=== PATIENT | male | born 1950 | race Caucasian/White ===

== ENCOUNTER 2017-07-23 14:54 | Observation (INO) | payer MEDICARE ==
[~2017-07-23] VITALS: Ht 165.1 cm; Wt 73.0 kg
--- NOTE | 2017-07-23 15:07 | PD ---
HPI Chief Complaint: Stroke Alert Time Seen by Provider: 15:02 Travel History International Travel<30 days: No Contact w/Intl Traveler<30days: No Traveled to known affect area: No History of Present Illness HPI This 66-year-old male says that an hour and a half ago he had numbness of his left arm. The arm was weak and he was unable to control it. The leg was not affected. His says that his speech seemed abnormal. He was able to drive here. He has a history of hypertension. He takes lisinopril and aspirin daily. He has been having some headaches recently. His says that he occasionally gets confused recently. [facility] Social History Tobacco Use: No Allergies-Medications (Allergen,Severity, Reaction): Coded Allergies: amoxicillin (Verified Allergy, Unknown, 07/23/17) clavulanic acid (Verified Allergy, Unknown, 07/23/17) Reported Meds & Prescriptions Reported Meds & Active Scripts Active Reported Aspirin 81 Mg Chew 81 Mg CHEW DAILY Lisinopril 10 Mg Tab 10 Mg PO DAILY Review of Systems Except as stated in HPI: all other systems reviewed are Neg General / Constitutional: No: Fever, Chills Eyes: No: Diploplia, Blurred Vision HENT: Positive: Headaches Cardiovascular: No: Chest Pain or Discomfort Respiratory: No: Cough, Shortness of Breath Gastrointestinal: No: Nausea Genitourinary: No: Urgency Musculoskeletal: No: Myalgias Skin: No Rash, No Itching Neurologic: Positive: Weakness Psychiatric: No: Anxiety Hematologic/Lymphatic: No: Easy Bruising Physical Exam Narrative GENERAL: Well-developed male SKIN: Focused skin assessment warm/dry. HEAD: Atraumatic. Normocephalic. EYES: Pupils equal and round. No scleral icterus. No injection or drainage. ENT: No nasal bleeding or discharge. Mucous membranes pink and moist. NECK: Trachea midline. No JVD. CARDIOVASCULAR: Regular rate and rhythm. No murmur appreciated. RESPIRATORY: No accessory muscle use. Clear to auscultation. Breath sounds equal bilaterally. GASTROINTESTINAL: Abdomen soft, non-tender, nondistended. Hepatic and splenic margins not palpable. MUSCULOSKELETAL: No obvious deformities. No clubbing. No cyanosis. No edema. NEUROLOGICAL: Awake and alert. No obvious cranial nerve deficits. There is drift of the left arm. The left research development manager is weaker than the right. Sensory testing appears intact. Leg strength is symmetric. I do not see any facial asymmetry. He occasionally hesitates with his speech but there is no slurring PSYCHIATRIC: Appropriate mood and affect; insight and judgment normal. Data Data Last Documented VS Vital Signs Date Time Temp Pulse Resp B/P (MAP) Pulse Ox O2 Delivery O2 Flow Rate FiO2 07/23/17 15:21 98 07/23/17 15:16 98.4 69 20 171/91 (117) Orders Orders Cath For Specimen (07/23/17 15:02) Neuro Checks Q2HX12,Q4H (07/23/17 15:02) Nursing Bedside Swallow Assess .ONCE (07/23/17 15:02) Activity Bed Rest (07/23/17 15:02) Diet Npo (07/23/17 Dinner) Prothrombin Time / Inr (Pt) (07/23/17 15:02) Act Partial Throm Time (Ptt) (07/23/17 15:02) Complete Blood Count With Diff (07/23/17 15:02) Basic Metabolic Panel (Bmp) (07/23/17 15:02) Fibrinogen (07/23/17 15:02) Creatine Kinase (Cpk) (07/23/17 15:02) Troponin I (07/23/17 15:02) Ua Includes Microscopic (07/23/17 15:02) Drug Screen, Random Urine (07/23/17 15:02) Type And Screen (07/23/17 15:02) Ct Brain W/O Iv Contrast(Rout) (07/23/17 ) Cta Brain W Iv Contrast W 3d (07/23/17 15:02) Cta Neck W Iv Contrast W 3d (07/23/17 15:02) Electrocardiogram (07/23/17 ) Consult Neurology (07/23/17 15:02) Blood Glucose (07/23/17 15:02) Ecg Monitoring (07/23/17 15:02) Iv Access Insert/Monitor (07/23/17 15:02) NPO (07/23/17 15:02) Oximetry (07/23/17 15:02) Resp Oxygen Nc Stroke (07/23/17 ) (Hub Use Only)Inp Phy Cons/Ref (07/23/17 ) Clopidogrel (Plavix) (07/23/17 15:45) Admit Order (Ed Use Only) (07/23/17 15:44) Lipid Profile (07/23/17 15:46) Mri Brain W/O Contrast (07/23/17 ) Echo 2d Comp With Doppler (07/23/17 ) Clopidogrel (Plavix) (07/23/17 16:00) Labs Laboratory Tests Test 07/23/17 15:10 White Blood Count 4.2 TH/MM3 Red Blood Count 4.51 MIL/MM3 Hemoglobin 13.6 GM/DL Hematocrit 40.3 % Mean Corpuscular Volume 89.4 FL Mean Corpuscular Hemoglobin 30.2 PG Mean Corpuscular Hemoglobin Concent 33.8 % Red Cell Distribution Width 11.9 % Platelet Count 206 TH/MM3 Mean Platelet Volume 6.4 FL Neutrophils (%) (Auto) 57.1 % Lymphocytes (%) (Auto) 26.8 % Monocytes (%) (Auto) 11.0 % Eosinophils (%) (Auto) 4.1 % Basophils (%) (Auto) 1.0 % Neutrophils # (Auto) 2.4 TH/MM3 Lymphocytes # (Auto) 1.1 TH/MM3 Monocytes # (Auto) 0.5 TH/MM3 Eosinophils # (Auto) 0.2 TH/MM3 Basophils # (Auto) 0.0 TH/MM3 CBC Comment DIFF FINAL Differential Comment Prothrombin Time 10.0 SEC Prothromb Time International Ratio 1.0 RATIO Activated Partial Thromboplast Time 24.7 SEC Blood Urea Nitrogen 14 MG/DL Creatinine 1.10 MG/DL Random Glucose 94 MG/DL Calcium Level 8.8 MG/DL Sodium Level 138 MEQ/L Potassium Level 3.8 MEQ/L Chloride Level 105 MEQ/L Carbon Dioxide Level 27.9 MEQ/L Anion Gap 5 MEQ/L Estimat Glomerular Filtration Rate 67 ML/MIN Total Creatine Kinase 166 U/L Troponin I LESS THAN 0.02 NG/ML MDM Medical Decision Making Medical Screen Exam Complete: Yes Emergency Medical Condition: Yes Medical Record Reviewed: Yes Differential Diagnosis Differential includes ischemic stroke, neuropathy, cerebral hemorrhage Narrative Course Patient arrived within an hour and a half of his symptoms. A stroke alert was called. Patient was taken to CT and the noncontrast CT is negative. On returning from CT patient says he feels like his arm may be a little bit improved. On repeat examination the drift does appear improved. He seems to have weakness greatest on extension of the wrist. Dr. Sanchez has come to see the patient and at this point we are withholding alteplase as the deficit does not appear severe at this time. Patient developed this deficit in spite of taking aspirin this morning. He has been given Plavix Diagnosis Primary Impression: Acute CVA (cerebrovascular accident) Admitting Information Admitting Physician Requests: Admit Rico Valderrama MD Jul 23, 2017 15:07
[2017-07-23 15:16] VITALS: BP 171/91; PULSE 69; RESP 20; TEMP 98.4; O2SAT 98
[2017-07-23 15:21] VITALS: O2SAT 98
[2017-07-23] MEDS ORDERED: ASPI-516 CHEW (15:21)
[2017-07-23] MEDS ORDERED: LISI10TA3 PO (15:21)
--- NOTE | 2017-07-23 15:21 | RADRPT ---
EXAM DATE/TIME: 07/23/2017 15:07 [facility] COMPARISON: No previous studies available for comparison. INDICATIONS : Stroke alert. Left upper extremity numbness for one hour. RADIATION DOSE: 59.77 CTDIvol (mGy) This report was called by Jeevan Palacios MD to Dr. Vasquez at 1518 MEDICAL HISTORY : None SURGICAL HISTORY : None. ENCOUNTER: Initial ACUITY: 1 day PAIN SCALE: 0/10 LOCATION: cranial TECHNIQUE: Multiple contiguous axial images were obtained of the head. Using automated exposure control and adj ustment of the mA and/or kV according to patient size, radiation dose was kept as low as reasonably a chievable to obtain optimal diagnostic quality images. DICOM format image data is available electro nically for review and comparison. FINDINGS: CEREBRUM: The ventricles are normal for age. No evidence of midline shift, mass lesion, hemorrhage or acute in farction. No extra-axial fluid collections are seen. POSTERIOR FOSSA: The cerebellum and brainstem are intact. The 4th ventricle is midline. The cerebellopontine angle i s unremarkable. EXTRACRANIAL: The visualized portion of the orbits is intact. SKULL: The calvaria is intact. No evidence of skull fracture. CONCLUSION: 1. No evidence of acute intracranial pathology. No masses are identified. 2. Jeevan Palacios MD on July 23, 2017 at 15:16 Board Certified Radiologist. This report was verified electronically.
[2017-07-23 15:26] LABS: AUTOMATED NEUTROPHIL # 2.4 TH/MM3 (1.8-7.7); EOSINOPHIL # 0.2 TH/MM3 (0-0.4); EOSINOPHIL % 4.1 % (0.0-4.0); HEMATOCRIT 40.3 % (39.0-51.0); HEMOGLOBIN 13.6 GM/DL (13.0-17.0); LYMPH % 26.8 % (9.0-44.0); LYMPHOCYTE # 1.1 TH/MM3 (1.0-4.8); MEAN CELL VOLUME 89.4 FL (80.0-100.0); MEAN CORPUSCULAR HEMOGLOBIN 30.2 PG (27.0-34.0); MEAN CORPUSCULAR HGB CONC 33.8 % (32.0-36.0); MEAN PLATELET VOLUME 6.4 FL (7.0-11.0); MONOCYTE # 0.5 TH/MM3 (0-0.9); NEUT % 57.1 % (16.0-70.0); PLATELET COUNT 206 TH/MM3 (150-450); RED BLOOD COUNT 4.51 MIL/MM3 (4.50-5.90); RED CELL DISTRIBUTION WIDTH 11.9 % (11.6-17.2); WHITE BLOOD COUNT 4.2 TH/MM3 (4.0-11.0)
[2017-07-23 15:33] LABS: CHLORIDE 105 MEQ/L (98-107); SODIUM (NA) 138 MEQ/L (136-145)
[2017-07-23 15:36] LABS: BICARBONATE 27.9 MEQ/L (21.0-32.0); CALCIUM 8.8 MG/DL (8.5-10.1); GLUCOSE,RANDOM 94 MG/DL (74-106)
[2017-07-23 15:37] LABS: BLOOD UREA NITROGEN 14 MG/DL (7-18)
[2017-07-23 15:40] LABS: GLOMERULAR FILTRATION RATE 67 ML/MIN (>89)
--- NOTE | 2017-07-23 15:41 | RADRPT ---
EXAM DATE/TIME: 07/23/2017 15:07 [facility] COMPARISON: No previous studies available for comparison. INDICATIONS : Stroke alert. Left upper extremity numbness for one hour. IV CONTRAST: 75 cc Visipaque (iodixanol) IV ; Cumulative dose for multiple exams. RADIATION DOSE: 43.13 CTDIvol (mGy) ; Combined studies MEDICAL HISTORY : None SURGICAL HISTORY : None. ENCOUNTER: Initial ACUITY: 1 day PAIN SCALE: 0/10 LOCATION: cranial TECHNIQUE: Volumetric scanning was performed using a multi-row detector CT scanner. The data was post processed with a variety of visualization algorithms including full volume maximum intensity projection, multi -planar sliding thin slab reformation, curved planar reformation, and surface rendering techniques. Using automated exposure control and adjustment of the mA and/or kV according to patient size, radiat ion dose was kept as low as reasonably achievable to obtain optimal diagnostic quality images. DICO M format image data is available electronically for review and comparison. FINDINGS: There is excellent visualization of the major intracranial arteries out to the second-order branch ve ssels. There is no evidence for aneurysm, vessel truncation or stenosis, and no evidence for vascula r malformation. CONCLUSION: Negative for major branch vessel occlusion. Boris Mcguire MD FACR on July 23, 2017 at 15:37 Board Certified Radiologist. This report was verified electronically.
[2017-07-23 15:44] LABS: TROPONIN I LESS THAN 0.02 NG/ML (0.02-0.05)
[2017-07-23] MEDS ORDERED: IODIXANOL 320 MG/ML 10 ML VIAL (for Rad CT) IVCONTRAST ONE (15:50)
--- NOTE | 2017-07-23 15:59 | RADRPT ---
EXAM DATE/TIME: 07/23/2017 15:07 [facility] COMPARISON: CT BRAIN W/O CONTRAST, July 23, 2017, 15:07. CTA BRAIN W 3D RECON, July 23, 2017, 15:07. INDICATIONS : Stroke alert. Left upper extremity numbness for one hour. IV CONTRAST: 75 cc Visipaque (iodixanol) IV ; Cumulative dose for multiple exams. RADIATION DOSE: 43.13 CTDIvol (mGy) ; Combined studies MEDICAL HISTORY : None SURGICAL HISTORY : None. ENCOUNTER: Initial ACUITY: 1 day PAIN SCALE: 0/10 LOCATION: neck Elevated flow velocities and ICA/CCA ratios have been found to correlate with increased degrees of vessel stenosis, calculated as percentage of diameter relative to a normal segment of distal ICA/CCA. TECHNIQUE: Volumetric scanning was performed using a multirow detector CT scanner. The data was post processed with a variety of visualization algorithms including full-volume maximum intensity projection, multip lanar sliding thin-slab reformation, curved-planar reformation, and surface-rendering techniques. Us ing automated exposure control and adjustment of the mA and/or kV according to patient size, radiatio n dose was kept as low as reasonably achievable to obtain optimal diagnostic quality images. DICOM f ormat image data is available electronically for review and comparison. FINDINGS: AORTIC ARCH: There is a three-vessel origin of the great vessels from the aorta. No evidence of ostial narrowing. RIGHT CAROTID: The common carotid artery is intact. The carotid bulb has a normal configuration without ulceration o r narrowing. The internal carotid artery lumen is smooth without stenosis. The external carotid nixon ry is intact. LEFT CAROTID: The common carotid artery is intact. The carotid bulb has a normal configuration without ulceration or narrowing. The internal carotid artery lumen is smooth without stenosis. The external carotid ar gianna is intact. VERTEBRALS: The vertebral arteries have a symmetric diameter. No stenotic lesions are seen. There is a slightly less than 2 cm heterogeneous diminished density mass with central calcification i nvolving the right lobe of thyroid. CONCLUSION: Normal CT appearance of the carotids. Right thyroid mass. Followup evaluation with thyroid sonography suggested. Jone Ruiz MD on July 23, 2017 at 15:52 Board Certified Radiologist. This report was verified electronically.
[2017-07-23] MEDS ORDERED: CLOPIDOGREL 75 MG TAB PO ONE (16:00)
[2017-07-23 16:12] VITALS: BP 134/73; PULSE 61; RESP 20; O2SAT 97
[2017-07-23] MEDS ORDERED: GLUCAGON 1 MG/ML VIAL OTHER PRN (16:15)
[2017-07-23] MEDS ORDERED: DEXTROSE 50% IN WATER 50 ML VIAL(D50) IV PUSH PRN (16:15)
[2017-07-23] MEDS ORDERED: SODIUM CHLORIDE 0.9% FLUSH 10 ML FLUSH IV FLUSH PRN (16:15)
[2017-07-23] MEDS: INSULIN ASPART SUPPLEMENTAL SCALE SQ SCH ×2 (17:00→21:00)
--- NOTE | 2017-07-23 17:12 | RADRPT ---
EXAM DATE/TIME: 07/23/2017 16:53 [facility] COMPARISON: CT BRAIN W/O CONTRAST, July 23, 2017, 15:07. INDICATIONS : CVA. MEDICAL HISTORY : Hypertension. SURGICAL HISTORY : Bilateral carpal tunnel. ENCOUNTER: Subsequent ACUITY: 1 day PAIN SCORE: 0/10 LOCATION: cranial TECHNIQUE: Multiplanar, multisequence MRI of the brain was performed without contrast. FINDINGS: CEREBRUM: The ventricles are normal for age. No evidence of midline shift, mass lesion, hemorrhage or acute in farction. No extraaxial fluid collections are seen. The pituitary gland and suprasellar cistern are normal in configuration. WHITE MATTER: A few scattered punctate areas of focal white matter T2 prolongation appear fairly benign, likely makeda rovascular ischemic in etiology. POSTERIOR FOSSA: The cerebellum and brainstem are intact. The 4th ventricle is midline. The cerebellopontine angle is unremarkable. The cerebellar tonsils are normal in position. DIFFUSION IMAGING: No focal areas of restricted diffusion are seen. No evidence of acute infarction. EXTRACRANIAL: The visualized portions of the orbits and paranasal sinuses are unremarkable. CONCLUSION: Occasional benign-appearing areas of white matter signal change. No acute findings. Jone Ruiz MD on July 23, 2017 at 17:09 Board Certified Radiologist. This report was verified electronically.
--- NOTE | 2017-07-23 17:22 | HHI.HP ---
HPI [facility] Primary Care Physician No Primary Care Physician Admission Diagnosis CVA Diagnoses: Travel History International Travel<30 Days: No Contact w/Intl Traveler <30 Da: No Traveled to Known Affected Are: No History of Present Illness This patient is 66-year-old gentleman with a history of hypertension. He had about half an hour of numbness and left arm. There is no focal speech deficit but his left arm was quite weak. Patient was brought to the emergency room by his . He was called as a stroke alert. By the time evaluation occurred patient symptoms were almost resolved. Patient says that for the last couple days he has had some stuttering but notes no focal speech deficit or difficulty swallowing. He has not had any chest pain or shortness of breath. He's never had any issues like this before. There is no family history of stroke. Patient 's recommended for admission and evaluation overnight due to strokelike symptoms. Since that time he had an echocardiogram which is unremarkable. MRI , CT of the head and neck are unremarkable. Patient symptoms have resolved to baseline more or less. He is seen by rehabilitation services and recommended for no further rehabilitation due to resolution of symptoms. Patient's expected to continue his blood pressure medication with the addition of aspirin , Plavix, atorvastatin This is discussed at length with his the patient and his . I also discussed the findings on the neck film regarding his thyroid mass. He has had a mass in the past which had been under observation by his primary care doctor. I did inform them to continue follow-up. They expressed understanding Review of Systems Constitutional: DENIES: Diaphoretic episodes, Fatigue, Fever, Weight gain, Weight loss, Chills, Dizziness, Change in appetite, Night Sweats Endocrine: DENIES: Heat/cold intolerance, Polydipsia, Polyuria, Polyphagia Eyes: DENIES: Blurred vision, Diplopia, Eye inflammation, Eye pain, Vision loss , Photosensitivity, Double Vision Ears, nose, mouth, throat: DENIES: Tinnitus, Hearing loss, Vertigo, Nasal discharge, Oral lesions, Throat pain, Hoarseness, Ear Pain, Running Nose, Epistaxis, Sinus Pain, Toothache, Odynophagia Respiratory: DENIES: Apneas, Cough, Snoring, Wheezing, Hemoptysis, Sputum production, Shortness of breath Cardiovascular: DENIES: Chest pain, Palpitations, Syncope, Dyspnea on Exertion , PND, Lower Extremity Edema, Orthopnea, Claudication Gastrointestinal: DENIES: Abdominal pain, Black stools, Bloody stools, Constipation, Diarrhea, Nausea, Vomiting, Difficulty Swallowing, Anorexia Genitourinary: DENIES: Sexual dysfunction, Urinary frequency, Urinary incontinence, Urgency, Hematuria, Dysuria, Nocturia, Penile Discharge, Testicular Pain, Testicular Swelling Musculoskeletal: DENIES: Joint pain, Muscle aches, Stiffness, Joint Swelling, Back pain, Neck pain Integumentary: DENIES: Abnormal pigmentation, Nail changes, Pruritus, Rash Immunologic/allergic: DENIES: Eczema, Urticaria Neurologic: COMPLAINS OF: Localized weakness, DENIES: Abnormal gait, Headache, Paresthesias, Seizures, Speech Problems, Tremor, Poor Balance Psychiatric: DENIES: Anxiety, Confusion, Mood changes, Depression, Hallucinations, Agitation, Suicidal Ideation, Homicidal Ideation, Delusions Except as stated in HPI: all other systems reviewed are Neg Past Family Social History Past Medical History Hypertension Thyroid mass Past Surgical History Denies Reported Medications Reviewed in the EMR Allergies: Coded Allergies: amoxicillin (Verified Allergy, Unknown, 07/23/17) clavulanic acid (Verified Allergy, Unknown, 07/23/17) Active Ordered Medications Reviewed in the EMR Family History No family history of stroke Social History Occasional alcohol, , no tobacco, visiting from out of state Physical Exam Vital Signs Vital Signs Date Time Temp Pulse Resp B/P (MAP) Pulse Ox O2 Delivery O2 Flow Rate FiO2 07/23/17 16:12 61 20 134/73 (93) 97 07/23/17 15:21 98 07/23/17 15:16 98.4 69 20 171/91 (117) 98 Physical Exam GENERAL: This is a well-nourished, well-developed patient, in no apparent distress. SKIN: No rashes, ecchymoses or lesions. Cool and dry. HEAD: Atraumatic. Normocephalic. No temporal or scalp tenderness. EYES: Pupils equal round and reactive. Extraocular motions intact. No scleral icterus. No injection or drainage. ENT: Nose without bleeding, purulent drainage or septal hematoma. Throat without erythema, tonsillar hypertrophy or exudate. Uvula midline. Airway patent. NECK: Trachea midline. No JVD or lymphadenopathy. Supple, nontender, no meningeal signs. CARDIOVASCULAR: Regular rate and rhythm without murmurs, gallops, or rubs. RESPIRATORY: Clear to auscultation. Breath sounds equal bilaterally. No wheezes , rales, or rhonchi. GASTROINTESTINAL: Abdomen soft, non-tender, nondistended. No hepato-splenomegaly , or palpable masses. No guarding. MUSCULOSKELETAL: Extremities without clubbing, cyanosis, or edema. No joint tenderness, effusion, or edema noted. No calf tenderness. Negative Homans sign bilaterally. NEUROLOGICAL: Awake and alert. Cranial nerves II through XII intact. Motor and sensory grossly within normal limits. 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 Otherwise Five out of 5 muscle strength in all muscle groups. Normal speech. Laboratory Laboratory Tests Test 07/23/17 15:10 White Blood Count 4.2 Red Blood Count 4.51 Hemoglobin 13.6 Hematocrit 40.3 Mean Corpuscular Volume 89.4 Mean Corpuscular Hemoglobin 30.2 Mean Corpuscular Hemoglobin Concent 33.8 Red Cell Distribution Width 11.9 Platelet Count 206 Mean Platelet Volume 6.4 Neutrophils (%) (Auto) 57.1 Lymphocytes (%) (Auto) 26.8 Monocytes (%) (Auto) 11.0 Eosinophils (%) (Auto) 4.1 Basophils (%) (Auto) 1.0 Neutrophils # (Auto) 2.4 Lymphocytes # (Auto) 1.1 Monocytes # (Auto) 0.5 Eosinophils # (Auto) 0.2 Basophils # (Auto) 0.0 CBC Comment DIFF FINAL Differential Comment Prothrombin Time 10.0 Prothromb Time International Ratio 1.0 Activated Partial Thromboplast Time 24.7 Fibrinogen 242 Blood Urea Nitrogen 14 Creatinine 1.10 Random Glucose 94 Calcium Level 8.8 Sodium Level 138 Potassium Level 3.8 Chloride Level 105 Carbon Dioxide Level 27.9 Anion Gap 5 Estimat Glomerular Filtration Rate 67 Total Creatine Kinase 166 Troponin I LESS THAN 0.02 Result Diagram: 07/23/17 1510 07/23/17 1510 Imaging Last Impressions Neck CTA 07/23/17 1502 Signed Impressions: Service Date/Time: Sunday, July 23, 2017 15:07 - CONCLUSION: Normal CT appearance of the carotids. Right thyroid mass. Followup evaluation with thyroid sonography suggested. Jone Ruiz MD Head CTA 07/23/17 1502 Signed Impressions: Service Date/Time: Sunday, July 23, 2017 15:07 - CONCLUSION: Negative for major branch vessel occlusion. Boris Mcguire MD FACR Head CT 07/23/17 0000 Signed Impressions: Service Date/Time: Sunday, July 23, 2017 15:07 - CONCLUSION: 1. No evidence of acute intracranial pathology. No masses are identified. 2. Jeevan Palacios MD Brain MRI 07/23/17 0000 Signed Impressions: Service Date/Time: Sunday, July 23, 2017 16:53 - CONCLUSION: Occasional benign-appearing areas of white matter signal change. No acute findings. MD Radha Manriquezi VTE Risk Assessment Caprini VTE Risk Assessment: Mod/High Risk (score >= 2) Caprini Risk Assessment Model Point Value = 1 Point Value = 2 Point Value = 3 Point Value = 5 Age 41-60 Minor surgery BMI > 25 kg/m2 Swollen legs Varicose veins or History of unexplained or recurrent spontaneous Oral contraceptives or hormone replacement Sepsis (< 1 month) Serious lung disease, including pneumonia (< 1 month) Abnormal pulmonary function Acute myocardial infarction Congestive heart failure (< 1 month) History of inflammatory bowel disease Medical patient at bed rest Age 61-74 Arthroscopic surgery Major open surgery (> 45 min) Laparoscopic surgery (> 45 min) Malignancy Confined to bed (> 72 hours) Immobilizing plaster cast Central venous access Age >= 75 History of VTE Family history of VTE Factor V Leiden Prothrombin [id number] Lupus anticoagulant Anticardiolipin antibodies Elevated serum homocysteine Heparin-induced thrombocytopenia Other congenital or acquired thrombophilia Stroke (< 1 month) Elective arthroplasty Hip, pelvis, or leg fracture Acute spinal cord injury (< 1 month) Prophylaxis Regimen Total Risk Factor Score Risk Level Prophylaxis Regimen 0-1 Low Early ambulation 2 Moderate Order ONE of the following: *Sequential Compression Device (SCD) *Heparin 5000 units SQ BID 3-4 Higher Order ONE of the following medications: *Heparin 5000 units SQ TID *Enoxaparin/Lovenox 40 mg SQ daily (WT < 150 kg, CrCl > 30 mL/min) *Enoxaparin/Lovenox 30 mg SQ daily (WT < 150 kg, CrCl > 10-29 mL/min) *Enoxaparin/Lovenox 30 mg SQ BID (WT < 150 kg, CrCl > 30 mL/min) AND/OR *Sequential Compression Device (SCD) 5 or more Highest Order ONE of the following medications: *Heparin 5000 units SQ TID (Preferred with Epidurals) *Enoxaparin/Lovenox 40 mg SQ daily (WT < 150 kg, CrCl > 30 mL/min) *Enoxaparin/Lovenox 30 mg SQ daily (WT < 150 kg, CrCl > 10-29 mL/min) *Enoxaparin/Lovenox 30 mg SQ BID (WT < 150 kg, CrCl > 30 mL/min) AND *Sequential Compression Device (SCD) Assessment and Plan Problem List: (1) HTN (hypertension) ICD Code: I10 - Essential (primary) hypertension Plan: continue Lisinopril (2) Acute CVA (cerebrovascular accident) ICD Code: I63.9 - Cerebral infarction, unspecified Status: Acute Plan: Imaging and echocardiogram unremarkable patient still has some left- sided hand weakness and appears to have improved. We'll continue with Plavix, aspirin, statin. Patient will follow-up with primary care and neurology locally Assessment and Plan Discharge home Activity unrestricted Diet reg Code Status Full code Discussed Condition With Neurology Madhavi Dyer MD Jul 23, 2017 17:22
[2017-07-23 17:45] VITALS: BP 121/69; PULSE 57; RESP 16; TEMP 97.5; O2SAT 97
[2017-07-23 18:30] VITALS: PULSE 55
[2017-07-23 19:38] LABS: CHOLESTEROL/ HDL RATIO 3.01 RATIO; HDL CHOLESTEROL 68.6 MG/DL (40.0-60.0)
[2017-07-23 20:00] VITALS: BP 141/69; PULSE 65; PULSE 79; RESP 18; TEMP 96.8; O2SAT 98; O2SAT 99
[2017-07-23 20:32] LABS: HEMOGLOBIN A1C 5.7 % (4.3-6.0)
[2017-07-23] MEDS: SODIUM CHLORIDE 0.9% FLUSH 10 ML FLUSH IV FLUSH SCH (21:34)
[2017-07-23 22:08] LABS: BILIRUBIN, URINE NEG (NEG); BLOOD, URINE NEG (NEG); GLUCOSE,URINE NEG (NEG); KETONE, URINE NEG (NEG); NITRITE,URINE NEG (NEG); PH, URINE 7.5 (5.0-8.5); URINE LEUKOCYTE ESTERASE NEG (NEG)
[2017-07-23 22:34] LABS: SQUAMOUS EPITHELIAL CELL URINE 0-5 /hpf (0-5); URINE COLOR YELLOW (YELLW/STRAW)
--- NOTE | 2017-07-23 23:10 | MB ---
cc: KASEY JUNG M.D. DATE OF : 1950, age 66 DATE OF CONSULTATION: 07/23/2017 REASON FOR CONSULTATION: Left-sided weakness, stroke alert. HISTORY OF PRESENT ILLNESS: This 66-year-old man who about an [id number] prior to coming to the ED started to experience some numbness in the left arm, questionable speech issue, felt it was weaker. He had trouble actually opening the milk and using deodorant. He felt like the arm fell asleep but it was not improving, so they drove here to the hospital in [place], and a stroke alert was called. He went to CT. By the time he came back, his symptoms had improved to the point where he was only having a little bit of weakness at the wrist and in sap abap programmer. His states he has been a little bit off the last couple of days, maybe repeating things, asking the same question which is not usual for him. PAST MEDICAL HISTORY: 1. Hypertension. MEDICATIONS: Lisinopril. Baby aspirin daily. SOCIAL HISTORY: He lives in [place]. He does not smoke or drink. ALLERGIES: AMOXICILLIN CLAVULANIC ACID FAMILY HISTORY: Noncontributory. PHYSICAL EXAMINATION: On exam his pulse is 69, respiratory rate 20, blood pressure 171/91, sating 98% on room air. Neck is supple. No appreciable bruises. Heart: Regular. He is awake and alert. Neurologic: His speech is normal. Pupils reactive. Visual michelle full. His face symmetrical. His tongue is midline. No facial dysesthesia. Motor powell, he does exhibit a mild weakness in the left sap abap programmer as well as the level of the wrist. No significant drift noted. Sensory is decreased, temperature and light touch to the wrist area. Random movements and fine motor movements are decreased in the left hand as well, right hand is intact. There is no leg lag. Cerebellar is normal just slower on the left, toes are both downgoing. DTRs are 1+ and gait is withheld. He is at bed rest. LABORATORY DATA: Reviewed. CBC is really unremarkable. Chemistries: GFR 67. Cardiac enzymes pending. Coag panel intact thus far. IMAGING STUDIES: Head CT was unremarkable and I received a call from Dr. Mcguire that the CTA of the kaw of [place], no branch occlusion. Carotids are not back yet. IMPRESSION 66-year-old man with likely small vessel infarct, causing left hand weakness, could be a lacunar infarct, there is some motor and sensory component. His only risk factors as we know right now are hypertension and possibly diet controlled hyperlipidemia. RECOMMENDATIONS: If the carotids were not done via CTA, then we will get a carotid ultrasound, otherwise we will wait for those results. Obtain an MRI only of the brain, will get a 2-D echocardiogram, get a lipid panel, PT/OT, speech therapy assessment. Lovenox for DVT prophylaxis. He is already on a baby aspirin, certainly than can be changed to clopidogrel 75 milligrams daily and depending on findings, further recommendations, but anticipate also now patient Holter. The patient was discussed with the , TPA. However, given that he is improving and his symptoms are minor, risks/benefits outweigh the need, and the family does understand. At this point, no TPA was given. MD DONTA Warner/DIDI /3:41 PM /10:55 PM
[2017-07-24] VITALS: BP 126/68; PULSE 61; RESP 16; TEMP 96.2; O2SAT 94
[2017-07-24 06:43] VITALS: BP 124/66; PULSE 64; RESP 20; TEMP 96.8
[2017-07-24 06:45] VITALS: BP 124/66; PULSE 64; RESP 20; TEMP 98.6; O2SAT 95
[2017-07-24 07:01] VITALS: PULSE 57
[2017-07-24 08:00] VITALS: BP 119/67; PULSE 53; RESP 20; TEMP 96.1; O2SAT 95
[2017-07-24] MEDS: INSULIN ASPART SUPPLEMENTAL SCALE SQ SCH ×2 (08:00→11:47)
[2017-07-24] MEDS: SODIUM CHLORIDE 0.9% FLUSH 10 ML FLUSH IV FLUSH SCH (08:11)
[2017-07-24] MEDS ORDERED: CLOPIDOGREL 75 MG TAB PO SCH (09:00)
[2017-07-24 09:28] LABS: CHOLESTEROL/ HDL RATIO 3.26 RATIO; HDL CHOLESTEROL 65.9 MG/DL (40.0-60.0)
[2017-07-24] MEDS ORDERED: LISINOPRIL 10 MG TAB PO SCH (11:00)
--- NOTE | 2017-07-24 11:46 | ECHRPT ---
Indication: CVA/TIA CONCLUSIONS The left ventricular systolic function is normal with an estimated ejection fraction in the range of 60-65%. Wall thickness is normal. No regional wall motion abnormalities are present. Trace mitral valve regurgitation. Trace-mild aortic valve regurgitation. BP: 124 / 66 HR: 85 Rhythm: Sinus MEASUREMENTS (Male / Female) Normal Values Technical Quality:Fair 2D ECHO LV Diastolic Diameter PLAX 3.9 cm 4.2 - 5.9 / 3.9 - 5.3 cm LV Systolic Diameter PLAX 2.8 cm IVS Diastolic Thickness 1.1 cm 0.6 - 1.0 / 0.6 - 0.9 cm LVPW Diastolic Thickness 1.1 cm 0.6 - 1.0 / 0.6 - 0.9 cm LV Relative Wall Thickness 0.6 RV Internal Dim ED PLAX 3.0 cm LVOT Diameter 1.8 cm LA Systolic Diameter LX 3.0 cm 3.0 - 4.0 / 2.7 - 3.8 cm LV Ejection Fraction MOD 4C 63.0 % LV Cardiac Index MOD 4C 3683.3 cm/minm LV Ejection Fraction 4C AL 64.0 % LV Cardiac Index 4C AL 3892.2 cm/minm M-MODE Aortic Root Diameter MM 2.8 cm AV Cusp Separation MM 2.0 cm DOPPLER AV Peak Velocity 145.0 cm/s AV Peak Gradient 8.4 mmHg AI Peak Velocity 414.5 cm/s AI Peak Gradient 68.7 mmHg AI Pressure Half Time 992.0 ms LVOT Peak Velocity 118.0 cm/s LVOT Peak Gradient 5.6 mmHg AV Area Cont Eq pk 2.1 cm MV Area PHT 2.7 cm Mitral E Point Velocity 66.6 cm/s Mitral A Point Velocity 66.6 cm/s Mitral E to A Ratio 1.0 PV Peak Velocity 92.3 cm/s PV Peak Gradient 3.4 mmHg FINDINGS LEFT VENTRICLE The left ventricular systolic function is normal with an estimated ejection fraction in the range of 60-65%. Wall thickness is normal. No regional wall motion abnormalities are present. RIGHT VENTRICLE Normal right ventricular size and systolic function. LEFT ATRIUM The left atrial size is normal. RIGHT ATRIUM The right atrial size is normal. ATRIAL SEPTUM Normal atrial septal thickness without atrial level shunting by limited color doppler interrogation. AORTA The aortic root and proximal ascending aorta are normal in size on limited imaging. MITRAL VALVE Structurally normal mitral valve. Trace mitral valve regurgitation. AORTIC VALVE Trileaflet aortic valve. Trace-mild aortic valve regurgitation. TRICUSPID VALVE Structurally normal tricuspid valve. No tricuspid valve stenosis or regurgitation. PULMONARY VALVE The pulmonary valve is not well visualized. VESSELS The inferior vena cava is normal in size. PERICARDIUM No pericardial effusion. Pedro Luis Henry MD, FACC (Electronically Signed) Final Date:24 July 2017 11:44
[2017-07-24 12:00] VITALS: BP 129/72; PULSE 69; RESP 20; TEMP 96.7; O2SAT 97
[2017-07-24] MEDS ORDERED: PLAV75TA29 PO (12:30)
[2017-07-24] MEDS ORDERED: ATOR40TA16 PO (12:30)
--- NOTE | 2017-07-24 12:40 | HHI.DCPOC ---
Discharge Care Plan Diagnosis: (1) Acute CVA (cerebrovascular accident) Goals to Promote Your Health * To prevent worsening of your condition and complications * To maintain your health at the optimal level Directions to Meet Your Goals Take your medications as prescribed Follow your dietary instruction Follow activity as directed Keep your appointments as scheduled Take your immunizations and boosters as scheduled If your symptoms worsen call your PCP, if no PCP go to Urgent Care Center or Emergency Room Smoking is Dangerous to Your Health. Avoid second hand smoke Call the 24-hour hour crisis hotline for domestic abuse at Madhavi Dyer MD Jul 24, 2017 12:40
--- NOTE | 2017-07-24 14:41 | EKG ---
Date Performed: 07/23/2017 Time Performed: 16:16:08 PTAGE: 66 years EKG: SINUS BRADYCARDIA BORDERLINE LEFT AXIS DEVIATION BORDERLINE ECG NO PREVIOUS TRACING DOCTOR: Nadeen Black Interpretating Date/Time 07/24/2017 14:33:00
--- NOTE | 2017-07-25 13:09 | HM ---
Date Performed: 07/23/2017 Time Performed: 19:15:00 HOOKUP DATE: 07/23/17 07:15:00 PM Mon ANALYSIS START TIME: 07/23/2017 7:20:00 PM ANALYSIS END TIME: 07/24/2017 2:06:44 PM PATIENT AGE: 66 PATIENT HEIGHT PATIENT WEIGHT DRUG LIST PATIENT DIAGNOSIS: NEURO SX TEST NARRATIVE: The patient's average heart rate was 65 BPM. Heart rates greater than 120 B PM were noted < 1% of the time. Heart rates less than 50 BPM were noted 15% of the time. No paus es exceeding 2.0 seconds were noted. 5 ventricular ectopics, which represented < 1% of the total beat count, were noted. The highest ventricular ectopic frequency occurred from 10:00 PM to 11:00 PM Mon. During this time 1 VE(s) occurred. Ventricular ectopics were observed as 5 isolated beat(s) o nly. No couplets or runs were noted. 25 supraventricular ectopics, which represented < 1% of the total beat count, were noted. The highest supraventricular ectopic frequency occurred from 07:00 PM to 08:00 PM Mon. During this time 6 SVE(s) occurred. No episodes of ST depression (defined as - 1.0 mm or more) were noted in channel 1. No episodes of ST depression (defined as -1.0 mm or more) w ere noted in channel 2. No episodes of ST depression (defined as -1.0 mm or more) were noted in banks rashid 3. NO DIARY ENTRIES TEST INTERPRETATION: Sinus rhythm rare PVCs Signed by : Pedro Luis Ball or
== END 2017-07-24 14:06 | disposition home or self-care (01) ==
LOC: PHED 14:54 → INTOOBSV 15:45 → PHEDA 15:45 → PH3A 17:26
PROVIDERS: ADMIT Hospitalist; ATTEND Hospitalist
DX: I63.9 Cerebral infarction, unspecified (principal); I10 Essential (primary) hypertension; E07.9 Disorder of thyroid, unspecified; R00.1 Bradycardia, unspecified; I49.3 Ventricular premature depolarization; Z79.82 Long term (current) use of aspirin; Z79.02 Long term (current) use of antithrombotics/antiplatelets; Z79.899 Other long term (current) drug therapy
CPT/HCPCS: 70450; 70496; 70498; 70551; 80048; 80061; 80307; 81001; 82550; 82948; 83036; 84484; 85025; 85384; 85610; 85730; 86850; 86900; 86901; 93005; 93225; 93226; 93306; 97110; 97162; 97167; 99285; G0378; G8987; G8988; Q9967